=== PATIENT | female | born 1950 | race Two or more races ===

== ENCOUNTER 2018-11-01 12:51 | Emergency (ER) | payer OTHER ==
[~2018-11-01] VITALS: Ht 154.9 cm; Wt 78.9 kg
--- NOTE | 2018-11-01 12:55 | NUR ---
PT [facility] FROM LONG[facility]M ACCOMPANIED BY PD. HERE FOR MEDICAL CLEARANCE. C/O FACIAL AND R WRIST PAIN S/P FELL OFF HER CHAIR FACE FIRST. PT IS AWAKE, APPEARS DROWSY STATES TAKE METHADONE. PLACED ON MONITOR. STABLE VITALS. AWAITNG MD SRENA.
--- NOTE | 2018-11-01 12:57 | NUR ---
DR MAJANO AT BEDSIDE FOR EVAL.
--- NOTE | 2018-11-01 13:29 | NUR ---
PT TO RADIOLOGY FOR HEAD CT SCAN VIA [facility].
--- NOTE | 2018-11-01 14:40 | NUR ---
PT MEDICALLY CLEARED. D/C TO PD IN STABLE CONDITION.
[2018-11-01 14:42] VITALS: BP 128/80
== END 2018-11-01 14:42 ==
LOC: ER 12:54
DX: S09.8XXA Other specified injuries of head, initial encounter (principal); M25.531 Pain in right wrist; W07.XXXA Fall from chair, initial encounter; Y93.89 Activity, other specified; Y92.89 Other specified places as the place of occurrence of the external cause; Y99.8 Other external cause status
CPT/HCPCS: 70450-TC